=== PATIENT | male | born 1980 | race African-American/Black ===

== ENCOUNTER 2024-06-02 11:11 | Emergency (ER) | payer OTHER ==
[~2024-06-02] VITALS: Ht 177.8 cm; Wt 82.0 kg
[2024-06-02 11:24] VITALS: O2SAT 99
[2024-06-02] MEDS: KETOROLAC 30MG/ML VIAL IV ONE (12:40)
[2024-06-02] MEDS: LIDOCAINE HCL/PF 1% 10 MG/ML 5ML VIAL INFIL ONE (12:49)
[2024-06-02] MEDS: BACITRACIN ZINC OINT UDPKT TOP ONE (12:50)
[2024-06-02 13:44] VITALS: BP 128/72; PULSE 88; RESP 18; TEMP 37.1; O2SAT 100
== END 2024-06-02 13:45 | disposition home or self-care (01) ==
LOC: ER 11:11
DX: S01.01XA Laceration without foreign body of scalp, initial encounter (principal); V48.2XXA Person on outside of car injured in noncollision transport accident in nontraffic accident, initial encounter; X58.XXXA Exposure to other specified factors, initial encounter; Y93.89 Activity, other specified; Y92.89 Other specified places as the place of occurrence of the external cause; Y99.8 Other external cause status
CPT/HCPCS: 99283; 96374; 12004; J1885; J2003

== ENCOUNTER 2024-06-05 10:43 | Emergency (ER) | payer OTHER ==
[~2024-06-05] VITALS: Ht 177.8 cm; Wt 85.0 kg
[2024-06-05 10:50] VITALS: O2SAT 100
[2024-06-05 10:59] VITALS: BP 110/69; PULSE 88; RESP 18; TEMP 36.8; O2SAT 97
== END 2024-06-05 11:44 | disposition home or self-care (01) ==
LOC: ER 10:43
DX: S01.81XA Laceration without foreign body of other part of head, initial encounter (principal); X58.XXXD Exposure to other specified factors, subsequent encounter
CPT/HCPCS: 99281

== ENCOUNTER 2024-06-10 14:24 | Emergency (ER) | payer OTHER ==
[~2024-06-10] VITALS: Ht 180.3 cm; Wt 100.0 kg
[2024-06-10 14:55] VITALS: BP 106/74; PULSE 92; RESP 16; TEMP 37.2; O2SAT 100
== END 2024-06-10 15:28 | disposition home or self-care (01) ==
LOC: ER 14:24
DX: S01.01XD Laceration without foreign body of scalp, subsequent encounter (principal); X58.XXXD Exposure to other specified factors, subsequent encounter
CPT/HCPCS: 99281